=== PATIENT | male | born 1965 | race Hispanic/Latino ===

== ENCOUNTER 2017-08-03 07:54 | Emergency (ER) | payer OTHER ==
[2017-08-03] MEDS: XYLOCAINE 2% INFILTRATI ONE (08:15)
--- NOTE | 2017-08-03 08:45 | XRay Report ---
AP CHEST: HISTORY: chest pain AP view of the chest demonstrates a normal mediastinal and cardiac contour with clear lungs and normal bony and soft tissue structures. IMPRESSION: Unremarkable AP chest.
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
[2017-08-03] MEDS: NORCO 5/325 PO ONE (09:20)
[2017-08-03] MEDS: TORADOL IM ONE (09:21)
[2017-08-03 10:25] VITALS: BP 129/53
== END 2017-08-03 10:25 | disposition home or self-care (01) ==
LOC: ED 07:54
DX: S01.511A Laceration without foreign body of lip, initial encounter (principal); R07.89 Other chest pain; V49.49XA Driver injured in collision with other motor vehicles in traffic accident, initial encounter; Y92.488 Other paved roadways as the place of occurrence of the external cause; Y93.89 Activity, other specified; Y99.9 Unspecified external cause status
CPT/HCPCS: 12053; 71010; 96372; 99284; J1885